=== PATIENT | female | born 1940 | race Caucasian/White ===

== ENCOUNTER → 2017-02-13 | Outpatient (CLI) | payer MEDICARE ==
[~2017-02-13] MED LIST: ASPIRIN 81MG TA81 MG PO; CALCIUM CARBONA1 TAB PO; CITRACAL200 MG PO; DIPHENOXYLATE W1 TAB PO; GEMFIBROZIL600 MG PO; NAPROXEN SODIU220 MG PO; TRAMADOL 50MG T50 MG PO; Zofran4 MG PO
--- NOTE | 2017-02-13 16:10 | CARDIOVASCULAR REPORT ---
"Cerebrovascular Exam Indications: Follow-up carotid 433.10. IMPRESSIONS 1. The bilateral vertebral arteries are patent with normal antegrade flow. 2. Study suggests less than 20% stenosis involving the right internal carotid artery and the left internal carotid artery. Carotid duplex study. Complete study and Doppler flow study including spectral analysis, color and martínez scale imaging. Height: Height: 157.5cm. Height: 62in. Weight: Weight: 66.2kg. Weight: 145.7lb. Body mass index: BMI: 26.7kg/m^2. Body surface area: BSA: 1.72m^2. Location: Vascular laboratory. Patient status: Outpatient. Tables: Arterial flow: + +--------+--------+ |Location |V sys |V ed | + +--------+--------+ |Right CCA - proximal|109cm/s |14.1cm/s| + +--------+--------+ |Right CCA - distal |93.5cm/s|16.5cm/s| + +--------+--------+ |Right ECA |72cm/s |--------| + +--------+--------+ |Right ICA - proximal|77.7cm/s|18.3cm/s| + +--------+--------+ |Right ICA - mid |92.5cm/s|21.4cm/s| + +--------+--------+ |Right ICA - distal |90.4cm/s|24.4cm/s| + +--------+--------+ |Right vertebral |51.1cm/s|--------| + +--------+--------+ |Left CCA - proximal |76cm/s |10.5cm/s| + +--------+--------+ |Left CCA - distal |116cm/s |14.7cm/s| + +--------+--------+ |Left ECA |79.1cm/s|--------| + +--------+--------+ |Left ICA - proximal |122cm/s |24.4cm/s| + +--------+--------+ |Left ICA - mid |90.8cm/s|24.4cm/s| + +--------+--------+ |Left ICA - distal |96.4cm/s|21.6cm/s| + +--------+--------+ |Left vertebral |82.5cm/s|--------| + +--------+--------+ Velocity ratios: + + + + + + | |Right, V sys|Right, V ed|Left, V sys|Left, V ed| + + + + + + |Max ICA/dist CCA|0.99 |1.48 |1.05 |1.66 | + + + + + + (Report amended ) Electronically signed by: Juan David Kimbrough [id number]"
== END ==
LOC: RT 15:10
DX: I65.23 Occlusion and stenosis of bilateral carotid arteries (principal)

== ENCOUNTER → 2017-05-14 | Outpatient (CLI) | payer MEDICARE ==
--- NOTE | 2017-05-14 11:29 | RADIOLOGY REPORT PS360 ---
BONE DENSITOMETRY(HIP:LT SPINE HISTORY: SCREENING ORDERING PHYSICIAN: Leora Gill MD PATIENT AGE: 76 years COMPARISON: None FINDINGS: The BMD measured at the right femoral neck is 0.787 g/cm squared with a T score of T score. This is considered Osteopenic according to the World Health Organization criteria. Fracture risk is Moderate. Treatment is advised. IMPRESSION: Osteopenia. Recommend follow-up exam in April 2019
== END ==
LOC: RAD 09:57
DX: Z78.0 Asymptomatic menopausal state (principal)

== ENCOUNTER → 2017-07-04 | Outpatient (CLI) | payer MEDICARE ==
--- NOTE | 2017-07-09 11:37 | RADIOLOGY REPORT PS360 ---
DIG MAMM-SCREEN [facility] W/CAD CAD Screening COMPARISON: Digital mammograms 06/19/2016 and 12/03/2013 INDICATION: There is no personal or family history of breast cancer TECHNIQUE: Standard CC and MLO images were obtained. R2 CAD reviewed. FINDINGS: Moderate diffuse heterogenic fiber glandular densities are seen in both breast primarily upper outer quadrants. Again noted is prominent arterial calcification in each breast. Is a mole marker right breast. There are few scattered benign-appearing calcination is in each breast. There is no new or suspicious lesion and there are no suspicious microcalcifications. IMPRESSION: Stable exam with no suspicious lesion seen recommend yearly follow-up BI-RADS CATEGORY: 2_Benign RECOMMENDED FOLLOWUP: 12M 12 MONTH FOLLOW-UP (A letter has been sent to the patient regarding results of the study.)
== END ==
LOC: RAD 09:40
DX: Z12.31 Encounter for screening mammogram for malignant neoplasm of breast (principal)
CPT/HCPCS: G0202